=== PATIENT | female | born 1970 | race Caucasian/White ===

== ENCOUNTER 2025-01-01 13:39 | Inpatient (IN) | payer BC, SELFPAY ==
[2025-01-01 07:05] VITALS: BMI 28.0
[2025-01-01 07:08] VITALS: BP 175/104
[2025-01-01 08:33] LABS: Hematocrit 37.3 % (37.0-47.0); Hemoglobin 13.2 g/dL (12.0-16.0); Mean Corp Hgb Conc. 35.4 g/dL (33.0-37.0); Mean Corpuscular Volume 90.3 fL (81.0-99.0); Nucleated Red Blood Cells % 0 %; Platelet Count 249 10^3/uL (130-400); Red Cell Dist. Width 12.0 % (11.5-14.5)
--- NOTE | 2025-01-01 08:39 | ED.GENMED ---
History of Present Illness
General
Chief Complaint: Abdominal Symptoms
Source: patient
Time Seen by Provider: 01/01/25 08:12
History of Present Illness
History of Present Illness:
54-year-old female with past medical history of hypertension, hyperlipidemia, rheumatoid arthritis (immunosuppressed secondary to meds from her RA) presenting to the emergency department for evaluation of bloody stools, nausea and vomiting after she
took an enema and 2 stool softeners yesterday for constipation. She does note that the constipation is an off-and-on issue for her, has needed to take medications in the past but has never had any issues following these medications. Patient states
the stool softener she took was a [employer] brand Colace. She also notes recently starting Zepbound about 5 weeks ago and another medication for her RA about 2-1/2 months ago, unsure if maybe this is causing some of her symptoms. She notes no known GI
related issues although states she has not had a colonoscopy despite recommendations from her family doctor. Patient did states she went out to dinner last night with family but nobody else with similar symptoms. Denies any fevers. No recent
antibiotics. Family history otherwise noncontributory.
Past History
Past History
ED Past Medical History: HTN, Hypercholesterolemia and Other (Rheumatoid arthritis)
ED Past Surgical History: Orthopedic
Social History
Tobacco: Non-smoker
Alcohol: None
Drug: None
Personal:
Living: with family
Review of Systems
Review of Systems
All Other Systems: ROS reviewed and negative except as documented in HPI and ROS
Phy Exam
Physical Exam
Physical Exam:
GENERAL: Alert , in no apparent distress but does appear uncomfortable
EYE: clear conjunctiva b/l
HEAD: NCAT
ENT: o/p clr, dry mucous membranes
CARDIAC: Regular rate and rhythm .
LUNGS: Clear breath sounds bilaterally, no acute respiratory distress, no wheezes/rales/rhonchi
ABDOMEN: Soft, without focal tenderness, no r/g, no cvat
NEUROLOGICAL: Alert and oriented
SKIN: Warm and dry, skin intact.
MUSCULOSKELETAL: No edema, well perfused.
PSYCH: Normal and appropriate interaction.
Scores
Heart Failure Risk
Heart Failure Risk Score: Not Applicable
Heart Score for Chest Pain Patients
STEMI patient?: Not applicable
Withdrawal Assessment of Alcohol
Withdrawal Assessment Completed?: Not applicable
Course
Orders/Labs/Results
Orders:
Orders
01/01/25 08:24
Complete Blood Count/With Diff Urgent
Comprehensive Metabolic Panel Urgent
Lipase Urgent
Urinalysis Reflex To Culture Urgent
Date Specimen was Collected: 01/01/25
Time Specimen was Collected: 07:58
01/01/25 08:29
Ondansetron Injectable [Zofran] 4 mg .ROUTE .[facility]
01/01/25 08:33
CT Abd/pelvis W Iv Cont Urgent
Comment:
Reason For Exam: generalized lower abd pain
0.9% Sodium Chloride 1000 ml [Nss] 1,000 ml IV BOLUS
Morphine Sulfate 4 mg IV NOW STA
Ondansetron Injectable [Zofran] 4 mg IV NOW STA
01/01/25 10:20
Ondansetron Injectable [Zofran] 4 mg IV NOW STA
01/01/25 11:23
HYDROmorphone [Dilaudid] 0.5 mg IV NOW STA
Abnormal Lab Results
01/01/25
08:24
RBC 4.13 L 10^6/uL
(4.20-5.40)
MCH 32.0 H pg
(27.0-31.0)
Absolute Neuts (auto) 8.3 H 10^3/uL
(1.4-6.5)
Absolute Lymphs (auto) 0.5 L 10^3/uL
(1.2-3.4)
Absolute Monos (auto) 0.7 H 10^3/uL
(0.1-0.6)
Neutrophils % 87.6 H %
(42.2-75.2)
Lymphocytes % 4.9 L %
(20.5-51.1)
Chloride 108 H mmol/L
(98-107)
Glucose 114 H mg/dl
(70-99)
01/01/25 08:24
01/01/25 08:24
Vital Signs
Initial and Last Documented VS:
Initial Vital Signs
Temp Pulse Resp BP Pulse Ox
98.7 F 93 18 175/104 100
01/01/25 07:08 01/01/25 07:08 01/01/25 07:08 01/01/25 07:08 01/01/25 07:08
Last Documented Vital Signs
Temp Pulse Resp BP Pulse Ox
98.7 F 80 18 159/90 100
01/01/25 07:08 01/01/25 11:46 01/01/25 11:46 01/01/25 11:46 01/01/25 11:46
MDM/Problems Addressed
Differential Diagnosis Includes:
Colitis
Internal hemorrhoids
Stercoral colitis
Diverticulitis/diverticular bleed
Pancreatitis
Medication side effects
C. difficile colitis or other infectious diarrhea
Less concern for appendicitis or cholecystitis
Dehydration
Anemia
Electrolyte imbalance
MDM/Problems Addressed:
54-year-old female presenting to the ER for evaluation of nausea vomiting and bloody stools since using a enema and 2 stool softeners yesterday for constipation. Patient had just finished retching in the bathroom prior to my exam, has dry mucous
membranes. Will treat symptoms here with Zofran, morphine and 1 L normal saline. Will avoid NSAIDs secondary to the bleeding. Patient otherwise currently hemodynamically stable. Patient is immunosuppressed on her RA medications. CT scan
ordered. Disposition pending.
Chronic conditions affecting care: Immunosuppressed
*Pulse Oximetry
SaO2: 100
Oxygen Mode of Delivery: Room air
Patient hypoxic: no
*Critical Care Note
Total Time (30-74mins, 75-104mins- exclusive of procedures): Not Applicable
Comment
Comment:
Patient noted some relief of the pain following the morphine but still with nausea following first round so an additional [address] scan for disposition planning
After returning from CT scan patient did note some increased pain. Additional half milligram Dilaudid ordered. CT scan with moderate to severe colitis. Given the patient's immunosuppressed state and continued waxing waning pain we will treat with
Dilaudid and reassess following
Patient Management
Discussion with other providers: Hospitalist
Escalation/DeEscalation of care consider admission/obs:
Patient does note that her symptoms are improved since arrival however still not feeling well. Given her immunosuppressed state and CT scan findings we will plan for admission for continued pain control, antiemetics and supportive care.
Hospitalist team notified and accepts for continued evaluation and treatment.
ED Attending Note
-
Portions of this chart may have been created with voice recognition software.� Occasional wrong word or��sound alike� substitutions may have occurred due to the inherent limitations of voice recognition software.
Discharge Plan
Departure
Patient Disposition: Admit
Date of Disposition: 01/01/25
Time of Disposition: 12:35
Presentation/result/management discussed w/ accepting MD/DO: Hospitalist
Discharge Problem:
Colitis
Prescriptions:
No Action
Mary Jo
1 tab PO PRN PRN (Reason: allergies)
methylprednisolone 4 MG tablet
4 mg PO DAILY
hydrocodone-acetaminophen 1 EACH tablet
1 tab PO PRN PRN (Reason: pain)
leflunomide 20 MG tablet
20 mg PO DAILY
tramadol 50 MG tablet
50 mg PO BID
norethindrone-mestranol [Ortho-Novum] 1 EACH tablet
1 tab PO DAILY
hydroxychloroquine 200 MG tablet
400 mg PO DAILY
Referrals:
JUDI UMANZOR PA [Family Provider, Family Practice]
Interventions
Interventions:
*Risk Screen - Suicide Last Done: 01/01/25 07:08
*General Assessment Last Done: 01/01/25 07:08
*Neglect/Abuse Screening Last Done: 01/01/25 07:08
Discharge Date and Time
Print Language: YAKUT
[2025-01-01] MEDS: MORPHINE SULFATE 4 MG IV (08:41)
[2025-01-01] MEDS: NSS 1000 IV ×2 (08:43→16:50)
[2025-01-01] MEDS: ZOFRAN 4 MG IV ×3 (08:43→16:52)
[2025-01-01 09:00] LABS: ALT (SGPT) 30 U/L (0-35); AST (SGOT) 31 U/L (14-36); Albumin 4.9 g/dl (3.5-5.0); Alkaline Phosphatase 86 U/L (38-126); Blood Urea Nitrogen 11 mg/dl (7-17); Calcium 9.8 mg/dl (8.4-10.2); Carbon Dioxide 26 mmol/L (22-30); Chloride 108 mmol/L (98-107); Glucose 114 mg/dl (70-99); Lipase 95 U/L (23-300); Potassium 4.0 mmol/L (3.5-5.1); Sodium 138 mmol/L (135-145); Total Protein 7.2 g/dl (6.3-8.2); eGFR > 60.00
[2025-01-01 10:46] LABS: Urine Character Clear (Clear)
[2025-01-01] MEDS: DILAUDID 0.5 MG IV ×2 (11:30→14:58)
[2025-01-01 11:46] VITALS: BP 159/90
--- NOTE | 2025-01-01 12:36 | HPS.HSE ---
Addendum entered and electronically signed by Teresa Gustafson DO 01/01/25 14:36:
Patient seen and examined. I reviewed the patient with Samantha and agree with her history and physical and assessment and plan of care as per below. The patient is having a significant amount of abdominal discomfort and pain associated with some
bloody diarrhea. As noted below she was initially having constipation and then she took an enema and started having some loose stool with blood. This is associated with cramping abdominal pain. She denies any recent travel nor any recent sick
contacts. Her CAT scan of her abdomen and pelvis is showing significant mount of colitis. Stool studies have been collected. Of note she also had an episode of vomiting today.
She is afebrile and her vital signs are stable.
Physical exam is remarkable for a non-peritoneal abdomen, no guarding no rebound, positive bowel sounds, diffuse tenderness to palpation, cardiovascular is regular rate and rhythm no murmurs rubs or gallops, lungs are clear to auscultation
bilaterally no wheezes rales rhonchi
Labs are reviewed her white count is normal at 9.4 slight left shift with neutrophil percentage of 87.6 , UA is normal
CT scan reviewed
Assessment and plan of care
Acute severe left-sided colitis, in the setting of immunosuppression and low-grade temperature of 99.2
-Continue with supportive care, IV fluids, pain management, IV antiemetics, and will add IV Unasyn
-Stool studies are pending
Immunosuppressed secondary to rheumatoid arthritis
-We will continue her Medrol at 2 mg daily along with the hydroxychloroquine, and we will hold her baricitinib for now
Continue to the monitor the patient's electrolytes closely with repeat laboratory in the morning
I agree with all of their assessment and plan of care as per below.
Original Note:
Family Physician
-
Family Physician: PATRICE JIMENEZ
Chief Complaint
-
Bloody Stools
History of Present Illness
Patient is a 54 y/o female past medical history of hypertension hyperlipidemia, and rheumatoid arthritis who presents with bloody stools. Patient notes difficulty with constipation for an extended period of time which has gotten worse since she
started taking Zepbound about 5 weeks ago. Yesterday she developed left sided abdominal pain. She had not had a bowel movement in about a week so she used an enema. She states initially stools were just diarrhea but then the stools turned bloody.
Patient also reports associated nausea and vomiting. She denies fevers.
Medical History
Past Medical History
Past Medical History: Reports Other
Additional Past Medical History:
Essential Hypertension
Hyperlipidemia
Asthma
Rheumatoid Arthritis
Past Surgical History: Reports Other
Additional Past Surgical History:
L5-S1 Diskectomy
Bilateral Plantar Fascitis Surgery
Social History
Tobacco: Non-smoker
Alcohol: None
Drug: None
Personal:
Living: With Family
Family History
Family History: Not pertinent
Allergies / Home Medications
Allergies reflects when Allergies were last updated in [employer].
Home Medications with original date entered in [employer]
Allergy/Medication List:
Allergies
Allergy/AdvReac Type Severity Reaction Status Date / Time
acetaminophen (From Percocet) Allergy Unknown Verified 01/01/25 07:08
oxycodone HCl (From Percocet) Allergy ANXIETY,PALPITATIONS Verified 01/01/25 07:08
AND SOME
NAUSEA
Home Medications
Mary Jo 1 tab PO PRN PRN allergies 07/07/16
hydrocodone 10 mg-acetaminophen 325 mg tablet 1 tab PO PRN PRN pain 07/07/16
hydroxychloroquine 200 mg tablet 400 mg PO DAILY 07/07/16
leflunomide 20 mg tablet 20 mg PO DAILY 07/07/16
methylprednisolone 4 mg tablet 4 mg PO DAILY 07/07/16
norethindrone 1 mg-mestranol 50 mcg tablet (Ortho-Novum) 1 tab PO DAILY 07/07/16
tramadol 50 mg tablet 50 mg PO BID 07/07/16
Review of Systems
-
History Source: Patient
A 12 point ROS was completed and negative except as noted: Yes
Constitutional: Denies Fever or Chills
Respiratory: Denies Cough or Trouble Breathing
Cardiac: Denies Chest Pain or Palpitations
Abdomen/GI: Reports See HPI
Physical Exam
Vital Signs
Vital Signs
Temp Pulse Resp BP Pulse Ox
98.7 F 80 18 159/90 100
01/01/25 07:08 01/01/25 11:46 01/01/25 11:46 01/01/25 11:46 01/01/25 11:46
Physical Exam
General: Comfortable and Conversant
HEENT: Anicteric and Moist mucous membranes
Respiratory: Clear and Non Labored Respirations
Cardiac: S1/S2 and Regular Rhythm
GI: Soft and Tender (Tenderness to palpation on the left slightly worse in lower quadrant, no rebound or guarding)
Musculoskeletal: No Clubbing, No Cyanosis and No Edema
Skin: Warm and Dry
Neuro: Awake, Alert, Oriented and Nonfocal/grossly intact
Laboratory Results
-
01/01/25 08:24
01/01/25 08:24
Laboratory Results
Total Bilirubin 0.9 mg/dl (0.2-1.3) 01/01/25 08:24
AST 31 U/L (14-36) 01/01/25 08:24
ALT 30 U/L (0-35) 01/01/25 08:24
Alkaline Phosphatase 86 U/L (38-126) 01/01/25 08:24
Lipase 95 U/L (23-300) 01/01/25 08:24
Data Reviewed
-
CT Scan: Report Reviewed by me
Lab Data: Labs Reviewed by me
Impression/Plan
-
Severe Left Sided Colitis
-Allow clear liquids
-Continue supportive care with IVFs, anti-emetics and pain meds
-Attempt to obtain stool studies
-Following my initial evaluation patient developed temp of 99.1F - given her immunocompromised state will start empiric antibiotics with Unasyn
Essential Hypertension
-Continue losartan with hold parameters
Hyperlipidemia
-Continue atorvastatin
Mild Persistent Asthma
-Continue fluticasone
Rheumatoid Arthritis / Immunocompromised-State
-Continue hydroxychloroquine and methylprednisolone
-Hold Olumiant
DVT Proph: SCDs
Code Status: Full Code
[2025-01-01 14:00] VITALS: BP 161/87
--- NOTE | 2025-01-01 14:12 | CM ---
CM reviewed chart and met with pt bedside in ED. Lives with in 2 story home, 2 [address], first floor half BA, BR/full BA second floor. Independent in ADLs, personal care and ambulation at baseline
No hx VN/SNF.
PCP: Roseline Perea
Pharmacy: [facility]
Discharge plan, Anticipate home, watch for needs
[2025-01-01] MEDS: COZAAR 50 MG PO (14:57)
[2025-01-01 15:46] VITALS: BP 146/78
[2025-01-01 15:47] VITALS: BMI 27.3
--- NOTE | 2025-01-01 17:43 | PTCARENOTE ---
Patient admitted to 2N from ED into room 2122. Patient AAOx3, VSS, ambulatory in room independently. Patient c/o abd pain/cramping mainly focused on L side rated 5/10, states improvement after dose of IV dilaudid given in ED. PRN IV zofran
administered by this RN for patient c/o nausea. Enhanced precautions for outstanding stool sample, patient aware, states no BM since early this AM prior to admin. Patient oriented to room and call tanvir, ERIKA infusing, patient on clear liquid diet,
ringing appropriately.
[2025-01-01] MEDS: UNASYN IV ×2 (17:49→22:14)
[2025-01-01] MEDS: COMPAZINE 5 MG IV (20:21)
[2025-01-01] MEDS: DILAUDID 0.25 MG IV ×2 (20:23→23:39)
[2025-01-01] MEDS: LIPITOR 20 MG PO (22:14)
[2025-01-01 23:09] VITALS: BP 159/86
[2025-01-02] MEDS: UNASYN IV ×4 (03:11→22:29)
[2025-01-02] MEDS: NSS 1000 IV ×2 (05:44→15:36)
[2025-01-02 07:00] VITALS: BP 163/93
[2025-01-02 07:09] LABS: Hematocrit 35.3 % (37.0-47.0); Hemoglobin 12.2 g/dL (12.0-16.0); Mean Corp Hgb Conc. 34.6 g/dL (33.0-37.0); Mean Corpuscular Volume 91.0 fL (81.0-99.0); Platelet Count 210 10^3/uL (130-400); Red Cell Dist. Width 12.6 % (11.5-14.5)
[2025-01-02 07:47] LABS: Blood Urea Nitrogen 5 mg/dl (7-17); Calcium 8.4 mg/dl (8.4-10.2); Carbon Dioxide 22 mmol/L (22-30); Chloride 109 mmol/L (98-107); Estimated Creatinine Clearance 90 ml/min; Glucose 79 mg/dl (70-99); Potassium 3.8 mmol/L (3.5-5.1); Sodium 137 mmol/L (135-145); eGFR > 60.00
[2025-01-02] MEDS: FLOVENT 44 MCG INHALER 2 PUFF INH ×2 (08:05→20:42)
[2025-01-02] MEDS: PLAQUENIL 400 MG PO (08:28)
[2025-01-02] MEDS: COZAAR 25 MG PO (08:29)
[2025-01-02] MEDS: MEDROL 2 MG PO (08:29)
[2025-01-02] MEDS: THERAGRAN 1 TABLET PO (08:29)
[2025-01-02] MEDS: CLARITIN 10 MG PO (08:29)
[2025-01-02] MEDS: TYLENOL 650 MG PO (10:16)
--- NOTE | 2025-01-02 11:00 | PTCARENOTE ---
Patient ambulating in room with a steady gait. Patient tolerating clear liquid diet. Patient c/o mild cramping in her LLQ, Tylenol given at 1015 with good relief. Patient updated with plan of care. Family member at bedside. Call ramey in reach.
--- NOTE | 2025-01-02 13:20 | W.PN.HOSP.TC ---
Today's Communication/Plan
-
Assessment / Plan
Assessment / Plan
General: No Apparent Distress, Comfortable and Conversant
HEENT: NormoCephalic, Moist mucous membranes, Atraumatic
Respiratory: Clear and Non Labored Respirations
Cardiac: S1/S2 and Regular Rhythm; No Rub or Gallop
GI: Soft, mild left-sided TTP, Non Distended and Normal Bowel Sounds
Musculoskeletal: No Edema, no deformity
Skin: Warm and dry
: NO Hudson
Neuro: Awake, Alert, Nonfocal/grossly intact
Psych: Calm and Intact Judgment/Insight
Ms. Marroquin is a 54-year-old female with a medical history of RA (on hydroxychloroquine, methylprednisolone, and baricitinib), hypertension, asthma, and hyperlipidemia who presented with abdominal pain and bloody stools. Her abdominal discomfort
began after starting Zepbound about 5 weeks prior to arrival. She developed constipation which was relieved with an enema, but later developed diarrhea eventually containing blood. She has also had associated nausea and vomiting. She denies
fevers.
Colitis:
- Abdominal symptoms are improving with IV Unasyn
- C. difficile negative, other stool studies pending
- CT imaging shows severe colitis involving the distal transverse, descending, and proximal sigmoid colon
- Continue clear liquid diet for now
- IV fluids
- Hemoglobin stable
- Holding home aspirin, not sure why she was on this
Rheumatoid arthritis:
- Continue home hydroxychloroquine 40 mg daily and methylprednisolone 2 mg daily
Hypertension:
- Chronic
- Continue home losartan 25 mg daily
Asthma:
- Stable
- Continue home inhaled fluticasone 2 puffs daily in the routing
DVT prophylaxis: SCDs
CODE STATUS: Full code
Total time spent on today's encounter was 45 minutes
Anticipated Discharge: 24 - 48 hours
Subjective/Interval History
-
Date of Service: January 02, 2025
Patient was seen and examined at bedside this morning. Still has left-sided abdominal pain but says it is improving.
Objective Data
-
Labs:
Laboratory Results
01/02/25
06:31
WBC 10.2
Hgb 12.2
Hct 35.3 L
Plt Count 210
Sodium 137
Potassium 3.8
Chloride 109 H
Carbon Dioxide 22
BUN 5 L
Creatinine 0.7
Glucose 79
Calcium 8.4
Vital Signs:
Vital Signs
Temp Pulse Resp BP Pulse Ox
98.9 F 72 16 163/93 96
01/02/25 07:00 01/02/25 08:07 01/02/25 08:07 01/02/25 07:00 01/02/25 08:07
I&O
01/01/25 01/02/25 01/03/25
06:59 06:59 06:59
Intake Total 1720 / 1720
Balance 1720 / 1720
Review of Systems
-
History Source: Patient
All other systems: Reviewed and negative
Abdomen/GI: Reports Abdominal Pain
Physical Exam
-
General: No Apparent Distress
--- NOTE | 2025-01-02 14:41 | CM ---
CM following re: discharge planning.
Reviewed pt's chart, met with pt.
Per chart review, pt is on room air, lives with in 2 story home and pt is independent in all areas [employer]IED [employer].
D/C plan: home with anticipated no needs. to transport at discharge.
CM will follow with discharge plan updates as needed.
[2025-01-02 15:00] VITALS: BP 122/76
[2025-01-02] MEDS: DILAUDID 0.25 MG IV ×2 (17:35→22:27)
--- NOTE | 2025-01-02 17:46 | PTCARENOTE ---
Patient c/o 7/10 Lower left abdominal pain. Dilaudid given per patient request. Spouse at bedside. Patient continues to tolerate clear liquids.
[2025-01-02] MEDS: LIPITOR 20 MG PO (22:23)
[2025-01-02] MEDS: ZOFRAN 4 MG IV (22:29)
[2025-01-02 23:23] VITALS: BP 160/85
[2025-01-03] MEDS: NSS 1000 IV (02:18)
[2025-01-03] MEDS: UNASYN IV ×4 (04:09→21:28)
[2025-01-03 06:06] LABS: Hematocrit 32.7 % (37.0-47.0); Hemoglobin 11.3 g/dL (12.0-16.0); Mean Corp Hgb Conc. 34.6 g/dL (33.0-37.0); Mean Corpuscular Volume 90.8 fL (81.0-99.0); Nucleated Red Blood Cells % 0 %; Platelet Count 189 10^3/uL (130-400); Red Cell Dist. Width 12.7 % (11.5-14.5)
[2025-01-03 06:40] LABS: Blood Urea Nitrogen 4 mg/dl (7-17); Calcium 8.4 mg/dl (8.4-10.2); Carbon Dioxide 24 mmol/L (22-30); Chloride 113 mmol/L (98-107); Estimated Creatinine Clearance 106 ml/min; Glucose 94 mg/dl (70-99); Potassium 3.7 mmol/L (3.5-5.1); Sodium 140 mmol/L (135-145); eGFR > 60.00
[2025-01-03 07:00] VITALS: BP 161/81
[2025-01-03] MEDS: FLOVENT 44 MCG INHALER 2 PUFF INH ×2 (07:44→17:50)
[2025-01-03] MEDS: PLAQUENIL 400 MG PO (10:00)
[2025-01-03] MEDS: THERAGRAN 1 TABLET PO (10:00)
[2025-01-03] MEDS: CLARITIN 10 MG PO (10:00)
[2025-01-03] MEDS: COZAAR 25 MG PO (10:00)
[2025-01-03] MEDS: MEDROL 2 MG PO (10:00)
--- NOTE | 2025-01-03 13:51 | W.PN.HOSP.TC ---
Today's Communication/Plan
-
Assessment / Plan
Assessment / Plan
General: No Apparent Distress, Comfortable and Conversant
HEENT: NormoCephalic, Moist mucous membranes, Atraumatic
Respiratory: Clear and Non Labored Respirations
Cardiac: S1/S2 and Regular Rhythm; No Rub or Gallop
GI: Soft, mild left-sided TTP, Non Distended and Normal Bowel Sounds
Musculoskeletal: No Edema, no deformity
Skin: Warm and dry
: NO Hudson
Neuro: Awake, Alert, Nonfocal/grossly intact
Psych: Calm and Intact Judgment/Insight
Ms. Marroquin is a 54-year-old female with a medical history of RA (on hydroxychloroquine, methylprednisolone, and baricitinib), hypertension, asthma, and hyperlipidemia who presented with abdominal pain and bloody stools. Her abdominal discomfort
began after starting Zepbound about 5 weeks prior to arrival. She developed constipation which was relieved with an enema, but later developed diarrhea eventually containing blood. She has also had associated nausea and vomiting. She denies
fevers.
Colitis:
- Abdominal symptoms are improving with IV Unasyn, however she is still having bloody bowel movements with clots and significant cramping
- C. difficile negative, other stool studies pending
- CT imaging shows severe colitis involving the distal transverse, descending, and proximal sigmoid colon
- Will advance diet to low residue
- Hemoglobin slightly down today to 11.3
- Holding home aspirin, not sure why she was on this
- Will ask for GI evaluation, some concern that she may be developing ulcerative colitis considering her RA history
Rheumatoid arthritis:
- Continue home hydroxychloroquine 40 mg daily and methylprednisolone 2 mg daily
Hypertension:
- Chronic
- Continue home losartan 25 mg daily
Asthma:
- Stable
- Continue home inhaled fluticasone 2 puffs twice daily
DVT prophylaxis: SCDs
CODE STATUS: Full code
Total time spent on today's encounter was 45 minutes
Anticipated Discharge: 24 - 48 hours
Subjective/Interval History
-
Date of Service: January 03, 2025
Patient was seen and examined at bedside this morning. She had some abdominal cramping and bloody bowel movements overnight. Her hemoglobin dropped slightly, blood pressure remained stable. She is ready to trial advancing her diet.
Objective Data
-
Labs:
Laboratory Results
01/03/25
05:55
WBC 8.1
Hgb 11.3 L
Hct 32.7 L
Plt Count 189
Sodium 140
Potassium 3.7
Chloride 113 H
Carbon Dioxide 24
BUN 4 L
Creatinine 0.6
Glucose 94
Calcium 8.4
Vital Signs:
Vital Signs
Temp Pulse Resp BP Pulse Ox
98.2 F 73 16 161/81 96
01/03/25 07:00 01/03/25 07:47 01/03/25 07:47 01/03/25 07:00 01/03/25 07:47
I&O
01/02/25 01/03/25 01/04/25
06:59 06:59 06:59
Intake Total 1720 / 1720 4200 / 4200
Balance 1720 / 1720 4200 / 4200
Review of Systems
-
History Source: Patient
All other systems: Reviewed and negative
Abdomen/GI: Reports Abdominal Pain and Bloody Stools
Physical Exam
-
General: No Apparent Distress
--- NOTE | 2025-01-03 14:26 | CM ---
CM following re: discharge planning.
Reviewed pt's chart, met with pt.
Per chart review, pt is on room air, lives with in 2 story home and pt is independent in all areas [employer].
D/C plan: home with anticipated no needs. to transport at discharge.
CM will follow with discharge plan updates as needed.
--- NOTE | 2025-01-03 14:52 | PTCARENOTE ---
Patient took shower with help from her daughter. Patient tolerated 100% of low residue diet. Patient describes pain as a tenderness in the LLQ and denies need for pain medication at present. Patient continues with small amount of loose bloody stool
<30ml.
[2025-01-03 15:00] VITALS: BP 147/83
--- NOTE | 2025-01-03 15:00 | CON.GI ---
Addendum entered and electronically signed by Hugo Garcia MD 01/03/25 17:36:
I saw and evaluated the patient. I reviewed the resident�s note and agree with findings and plan as documented in the resident�s note.
54yo female presents with sudden onset abd pain, bloody diarrhea after eating at restaurant Thursday night. Prior, she was having worsened constipation since starting zepbound 5 weeks ago. She does have chronic constipation which has been
lifelong. No prior colonoscopy. After dinner Thursday she had abd pain and tried stool softener and enema followed by bloody diarrhea. She also had vomiting. Denies fever. CT in ER showed moderate wall thickening of distal transverse,
descending, proximal sigmoid colon and stranding. C diff negative so far. WBC normal. Denies FH CRC or IBD
REC:
Agree with IV abx and clears
If doing better, advance diet
Await stool culture r/o infectious colitis, which is most likely
After resolution, I recommended colonoscopy in about 2-3 months to confirm resolution, exclude IBD and also for CRC screening.
Original Note:
Consultation
-
Date/Time Consultation Requested: 01/03/2025
Date/Time Consultation Performed: 01/03/2025
Medical History
Chief Complaint / HPI
Chief Complaint: Blood in stools
History of Present Illness:
Patient is a 54-year-old female with past medical history of essential hypertension, hyperlipidemia, asthma, rheumatoid arthritis, lupus who is on hydroxychloroquine, leflunomide, methylprednisone, a couple of months ago her medications were being
adjusted and she noticed that she developed generalized swelling of her body. She went to her PCP who noticed a high blood pressure and high blood sugars, she was in prediabetic range and her PCP decided to start her on Zepbound. She is on 2.5 mg
dose and takes the dose every Thursday. She denies any nausea, vomiting, constipation or diarrhea with Zepbound and she was feeling great with it, her blood sugars were improving and her weight was improvement.
Over the last week, she was unable to have a bowel movement. On Thursday, she went out to eat and when she came back home she had intense pain in her lower abdomen, she took a couple of stool softeners but it did not help her so she decided to give
herself an enema. Following the enema, she had multiple loose stools and then she noticed blood in her stool. During the night she had multiple bowel movements with mucus and with each of them she had noticed about a cup of blood that was bright
red in color. She came to the ER on Thursday morning. At that time she was having low-grade fevers, an abdominal CT was done that showed segmental wall thickening of the distal transverse colon descending colon and proximal sigmoid colon with
pericolonic stranding suggesting colitis without any perforation or abscess. She was started on IV fluids and antibiotic. She still has blood in her stool that is darker in color and jellylike in consistency. She never had any screening
colonoscopy done. She denies any family history of stomach cancer, colon cancer, ulcerative colitis or Crohn's disease.
Past Medical History
Past Medical History: Asthma, HTN, Hypercholesterolemia and Other (Rheumatoid arthritis)
Past Surgical History: Other (L5-S1 Diskectomy Bilateral Plantar Fascitis Surgery)
Social History
Tobacco: Non-Smoker
Alcohol: None
Drug: None
Personal:
Living: With Family (Describes herself as an active person, daily gym, takes care of her grandchildren 7-month and 10 months of age)
Family History
Family History: Reviewed & Not Pertinent
Allergies / Home Medications
Allergy/AdvReac Type Severity Reaction Status Date / Time
acetaminophen (From Percocet) Allergy Unknown Verified 01/01/25 07:08
oxycodone HCl (From Percocet) Allergy ANXIETY,PALPITATIONS Verified 01/01/25 07:08
AND SOME
NAUSEA
�Medication �Instructions �Recorded
hydroxychloroquine 200 mg tablet 400 mg PO DAILY Autoimmune Disorder 07/07/16
methylprednisolone 4 mg tablet 2 mg PO DAILY Anti-Inflammatory 07/07/16
aspirin 81 mg tablet 81 mg PO Q48H Blood Clot 01/01/25
Prevention/Tx
atorvastatin 20 mg tablet 20 mg PO QHS High Cholesterol 01/01/25
baricitinib 2 mg tablet (Olumiant) 4 mg PO DAILY Autoimmune Disorder 01/01/25
fexofenadine 180 mg tablet 180 mg PO DAILY Allergies 01/01/25
fluticasone furoate 100 1 inh inhalation R DAILY 01/01/25
mcg/actuation blister powder for Lung/Breathing Issues
inhalation (Arnuity Ellipta)
losartan 25 mg tablet 25 mg PO DAILY Blood Pressure 01/01/25
therapeutic multivitamin 1 tab PO DAILY Supplement 01/01/25
tirzepatide (weight loss) 2.5 2.5 mg SC MO WEIGHT LOSS 01/01/25
mg/0.5 mL subcutaneous pen
injector (Zepbound)
Review of Systems
-
All other systems: A 12 pt ROS was Negative except as stated above in HPI
Vital Signs
Temp Pulse Resp BP Pulse Ox
98.2 F 73 16 161/81 96
01/03/25 07:00 01/03/25 07:47 01/03/25 07:47 01/03/25 07:00 01/03/25 07:47
Physical Exam
Exam
General: No Apparent Distress and Comfortable
HEENT: Anicteric and Moist Mucous Membranes
Respiratory: Clear; Negative Wheezes, Rales or Rhonchi
Cardiac: S1/S2 and Regular Rhythm
GI: Soft, Non Distended, Normal Bowel Sounds and Tender (Tender in the left lower quadrant)
Musculoskeletal: No Clubbing, No Cyanosis and No Edema
Neuro: Awake, Oriented and Nonfocal/Grossly Intact
Psych: Calm
Results
WBC 8.1 10^3/uL (4.8-10.8) 01/03/25 05:55
Hgb 11.3 g/dL (12.0-16.0) L 01/03/25 05:55
Hct 32.7 % (37.0-47.0) L 01/03/25 05:55
MCV 90.8 fL (81.0-99.0) 01/03/25 05:55
Plt Count 189 10^3/uL (130-400) 01/03/25 05:55
Absolute Neuts (auto) 6.5 10^3/uL (1.4-6.5) 01/03/25 05:55
Sodium 140 mmol/L (135-145) 01/03/25 05:55
Potassium 3.7 mmol/L (3.5-5.1) 01/03/25 05:55
Chloride 113 mmol/L (98-107) H 01/03/25 05:55
Carbon Dioxide 24 mmol/L (22-30) 01/03/25 05:55
BUN 4 mg/dl (7-17) L 01/03/25 05:55
Creatinine 0.6 mg/dL (0.6-1.0) 01/03/25 05:55
Calcium 8.4 mg/dl (8.4-10.2) 01/03/25 05:55
Total Bilirubin 0.9 mg/dl (0.2-1.3) 01/01/25 08:24
AST 31 U/L (14-36) 01/01/25 08:24
ALT 30 U/L (0-35) 01/01/25 08:24
Alkaline Phosphatase 86 U/L (38-126) 01/01/25 08:24
Lipase 95 U/L (23-300) 01/01/25 08:24
Diagnostic Image Results:
CT A/P 01/01/2025
Abdomen and pelvis: The liver, spleen, gallbladder and pancreas are unremarkable. The adrenal glands and kidneys are unremarkable. The abdominal aorta is normal caliber. No significant lymphadenopathy is noted. Bowel loops are normal caliber. The
terminal ileum and appendix are within normal limits. There is moderate segmental wall thickening of the distal transverse colon, descending colon and proximal sigmoid colon as well as pericolonic stranding suggesting colitis. There is no evidence
of perforation or abscess formation
Prior GI Procedures:
EGD:
None
Colonoscopy:
None
Assessment / Plan
-
Impression
Love is a 54-year-old female with past medical history of rheumatoid arthritis/lupus, on immunosuppressants admitted for workup of colitis. GI consulted for recommendations
Assessment/plan
Stercoral colitis secondary to chronic constipation
Acute diverticulitis given the pattern of sudden onset massive bleed and then progressively decrease in the amount of blood and change in color of blood
Infectious colitis
Side effect of Zepbound but less likely
C. difficile and norovirus negative
Plan
Follow stool culture results
Continue IV fluids and IV antibiotics
Supportive management with as needed pain medications
Advance diet as tolerated
If the bleeding self resolves over the next couple of days, most likely diverticular bleed, will follow-up on outpatient basis with a colonoscopy
Add bowel regimen and discharge on a good bowel regimen
Close follow-up with PCP regarding Zepbound
DVT prophylaxis SCDs
CODE STATUS-full code
-
-
Thank you for consultation and allowing me to participate in the patient's care. 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
[2025-01-03] MEDS: TYLENOL 650 MG PO (19:53)
[2025-01-03] MEDS: LIPITOR 20 MG PO (21:28)
[2025-01-03 23:04] VITALS: BP 136/80
[2025-01-04] MEDS: MYLICON 80 MG PO ×3 (00:03→21:34)
[2025-01-04] MEDS: UNASYN IV ×4 (04:58→21:27)
[2025-01-04 07:00] VITALS: BP 158/91
[2025-01-04] MEDS: FLOVENT 44 MCG INHALER 2 PUFF INH ×2 (07:07→18:11)
[2025-01-04] MEDS: COZAAR 25 MG PO (07:59)
[2025-01-04] MEDS: MEDROL 2 MG PO (07:59)
[2025-01-04] MEDS: THERAGRAN 1 TABLET PO (07:59)
[2025-01-04] MEDS: PLAQUENIL 400 MG PO (08:00)
[2025-01-04] MEDS: CLARITIN 10 MG PO (08:00)
[2025-01-04 08:27] LABS: Hematocrit 34.1 % (37.0-47.0); Hemoglobin 11.7 g/dL (12.0-16.0); Mean Corp Hgb Conc. 34.3 g/dL (33.0-37.0); Mean Corpuscular Volume 91.2 fL (81.0-99.0); Nucleated Red Blood Cells % 0 %; Platelet Count 227 10^3/uL (130-400); Red Cell Dist. Width 12.4 % (11.5-14.5)
[2025-01-04 08:30] LABS: Blood Urea Nitrogen 4 mg/dl (7-17); Calcium 9.1 mg/dl (8.4-10.2); Carbon Dioxide 25 mmol/L (22-30); Chloride 113 mmol/L (98-107); Estimated Creatinine Clearance 106 ml/min; Glucose 97 mg/dl (70-99); Potassium 3.7 mmol/L (3.5-5.1); Sodium 140 mmol/L (135-145); eGFR > 60.00
--- NOTE | 2025-01-04 09:03 | W.PN.GI.CBS2 ---
Addendum entered and electronically signed by Hugo Garcia MD 01/04/25 09:55:
I saw and evaluated the patient. I reviewed the resident�s note and agree with findings and plan as documented in the resident�s note.
Pt just passed gelatinous dark bloody clots. Not much stool. Had cramps overnight relieved with simethicone
ABD soft mild tender
REC:
Suspect resolving infectious colitis
OK to advance to low residue diet
Await Ecoli, Salmonella, Shigella. C diff and Campylobacter negative. WBCs in stool
Cont abx for now
If bleeding stops, tolerating diet, OK for d/c, but monitor today and see.
Original Note:
Today's Communication / Plan
-
Advance diet as tolerated
Assessment / Plan
-
Impression
Love is a 54-year-old female with past medical history of rheumatoid arthritis/lupus, on immunosuppressants admitted for infectious colitis
Assessment/plan
Infectious colitis
Stercoral colitis secondary to chronic constipation
Acute diverticulitis given the pattern of sudden onset massive bleed and then progressively decrease in the amount of blood and change in color of blood
Side effect of Zepbound but less likely
C. difficile and norovirus negative
Campylobacter jejuni negative
Moderate amount of leukocytes and stool
Plan
Follow stool culture results
Continue IV fluids and IV antibiotics
Supportive management with as needed pain medications
Advance diet as tolerated
Patient feeling fine and no further blood in stool, can discharge on oral antibiotics
Follow-up with GI in office for colonoscopy in 2 to 3 months
DVT prophylaxis SCDs
CODE STATUS-full code
Subjective
Subjective
Date of Service: January 04, 2025
Patient seen and examined at bedside
Last bowel movement yesterday, burgundy in color
Has left lower quadrant pain relieved with Pepcid
Denies any fever, chills, palpitations or any other issues at this time
Objective
Data Reviewed
Laboratory Data:
Laboratory Results
01/04/25 07:28
01/04/25 07:28
Laboratory Results
Total Bilirubin 0.9 mg/dl (0.2-1.3) 01/01/25 08:24
AST 31 U/L (14-36) 01/01/25 08:24
ALT 30 U/L (0-35) 01/01/25 08:24
Alkaline Phosphatase 86 U/L (38-126) 01/01/25 08:24
Lipase 95 U/L (23-300) 01/01/25 08:24
Vital Signs and I&O:
Vital Signs
Temp Pulse Resp BP Pulse Ox
98.1 F 84 16 158/91 97
01/04/25 07:00 01/04/25 07:59 01/04/25 07:10 01/04/25 07:59 01/04/25 07:10
I&O
01/03/25 01/04/25 01/05/25
06:59 06:59 06:59
Intake Total 4200 / 4200 2185 / 2185
Balance 4200 / 4200 2185 / 2185
Physical Exam
Physical Exam
HEENT: Moist mucous membranes
Cardiology: Normal Sinus Rhythm, S1 and S2
GI: Soft, Non Distended, Tender (Mildly tender in left lower quadrant) and Normal Bowel Sounds
[2025-01-04 09:49] LABS: C-Reactive Protein 119.70 mg/L (0.0-10.00)
--- NOTE | 2025-01-04 11:19 | CM ---
CM following re: discharge planning.
Reviewed pt's chart, met with pt.
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
D/C plan: home with anticipated no needs. to transport at discharge.
CM will follow with discharge plan updates as needed.
--- NOTE | 2025-01-04 13:24 | W.PN.HOSP.TC ---
Today's Communication/Plan
-
Assessment / Plan
Assessment / Plan
General: No Apparent Distress, Comfortable and Conversant
HEENT: NormoCephalic, Moist mucous membranes, Atraumatic
Respiratory: Clear and Non Labored Respirations
Cardiac: S1/S2 and Regular Rhythm; No Rub or Gallop
GI: Soft, mild left-sided TTP, Non Distended and Normal Bowel Sounds
Musculoskeletal: No Edema, no deformity
Skin: Warm and dry
: NO Hudson
Neuro: Awake, Alert, Nonfocal/grossly intact
Psych: Calm and Intact Judgment/Insight
Ms. Marroquin is a 54-year-old female with a medical history of RA (on hydroxychloroquine, methylprednisolone, and baricitinib), hypertension, asthma, and hyperlipidemia who presented with abdominal pain and bloody stools. Her abdominal discomfort
began after starting Zepbound about 5 weeks prior to arrival. She developed constipation which was relieved with an enema, but later developed diarrhea eventually containing blood. She has also had associated nausea and vomiting. She denies
fevers.
Colitis:
- Abdominal symptoms are improving with IV Unasyn, however she is still having bloody bowel movements with clots and significant cramping
- C. difficile and Campylobacter negative, Salmonella and Shigella pending
- CT imaging shows severe colitis involving the distal transverse, descending, and proximal sigmoid colon
- Hemoglobin stable at 11.7 on labs this morning
- Holding home aspirin, not sure why she was on this
- Appreciate GI evaluation, will need outpatient follow-up and eventual colonoscopy
- Continue low residue diet, simethicone for gas/bloating pains
- Will monitor another 24 hours considering ongoing hematochezia
Rheumatoid arthritis:
- Continue home hydroxychloroquine 40 mg daily and methylprednisolone 2 mg daily
- Elevated ESR and CRP although this is nonspecific considering active infection
Hypertension:
- Chronic
- Continue home losartan 25 mg daily
Asthma:
- Stable
- Continue home inhaled fluticasone 2 puffs twice daily
DVT prophylaxis: SCDs
CODE STATUS: Full code
Total time spent on today's encounter was 45 minutes
Anticipated Discharge: 24 - 48 hours
Subjective/Interval History
-
Date of Service: January 04, 2025
Patient was seen and examined at bedside this morning. She reported a large bloody bowel movement this morning. Hemodynamically stable. Abdominal pain improved and hemoglobin remained stable around 12.
Objective Data
-
Labs:
Laboratory Results
01/04/25
07:28
WBC 7.7
Hgb 11.7 L
Hct 34.1 L
Plt Count 227 D
Sodium 140
Potassium 3.7
Chloride 113 H
Carbon Dioxide 25
BUN 4 L
Creatinine 0.6
Glucose 97
Calcium 9.1
Vital Signs:
Vital Signs
Temp Pulse Resp BP Pulse Ox
98.1 F 84 16 158/91 97
01/04/25 07:00 01/04/25 07:59 01/04/25 07:10 01/04/25 07:59 01/04/25 09:24
I&O
01/03/25 01/04/25 01/05/25
06:59 06:59 06:59
Intake Total 4200 / 4200 2185 / 2185
Balance 4200 / 4200 2184 / 2185
Review of Systems
-
History Source: Patient
All other systems: Reviewed and negative
Abdomen/GI: Reports Abdominal Pain and Bloody Stools
Physical Exam
-
General: No Apparent Distress
[2025-01-04 15:00] VITALS: BP 153/85
[2025-01-04] MEDS: TYLENOL 650 MG PO (16:22)
[2025-01-04] MEDS: LIPITOR 20 MG PO (21:29)
[2025-01-04 23:10] VITALS: BP 157/75
[2025-01-05] MEDS: UNASYN IV ×2 (04:46→09:57)
[2025-01-05] MEDS: MYLICON 80 MG PO ×2 (05:58→09:04)
[2025-01-05 07:00] VITALS: BP 146/75
[2025-01-05 07:43] LABS: Hematocrit 33.9 % (37.0-47.0); Hemoglobin 11.7 g/dL (12.0-16.0); Mean Corp Hgb Conc. 34.5 g/dL (33.0-37.0); Mean Corpuscular Volume 90.4 fL (81.0-99.0); Nucleated Red Blood Cells % 0 %; Platelet Count 240 10^3/uL (130-400); Red Cell Dist. Width 12.3 % (11.5-14.5)
[2025-01-05 08:00] LABS: Blood Urea Nitrogen 7 mg/dl (7-17); Calcium 9.2 mg/dl (8.4-10.2); Carbon Dioxide 24 mmol/L (22-30); Chloride 113 mmol/L (98-107); Estimated Creatinine Clearance 90 ml/min; Glucose 83 mg/dl (70-99); Potassium 3.7 mmol/L (3.5-5.1); Sodium 142 mmol/L (135-145); eGFR > 60.00
[2025-01-05] MEDS: PLAQUENIL 400 MG PO (08:43)
[2025-01-05] MEDS: MEDROL 2 MG PO (08:43)
[2025-01-05] MEDS: CLARITIN 10 MG PO (08:43)
[2025-01-05] MEDS: THERAGRAN 1 TABLET PO (08:43)
[2025-01-05] MEDS: COZAAR 25 MG PO (08:44)
[2025-01-05] MEDS: FLOVENT 44 MCG INHALER 2 PUFF INH (08:50)
--- NOTE | 2025-01-05 09:26 | W.PN.GI.CBS2 ---
Today's Communication / Plan
-
Tolerating diet with improving symptoms
OK for d/c on outpt abx to complete 1 week course
F/U in the office with me to set up OP colonoscopy in 2-3 months
OK to use simethicone for gas sx
Will sign off
Assessment / Plan
-
Impression
Love is a 54-year-old female with past medical history of rheumatoid arthritis/lupus, on immunosuppressants admitted for infectious colitis
Assessment/plan
Infectious colitis- resolving. Negative C diff, Campylobacter, Salmonella, Shigella. E coli pending
Moderate amount of leukocytes and stool
Subjective
Subjective
Date of Service: January 05, 2025
Feeling better. Brown BM with scant blood today. Gas sx relieved with simethicone
Objective
Data Reviewed
Laboratory Data:
Laboratory Results
01/05/25 06:53
01/05/25 06:53
Laboratory Results
Total Bilirubin 0.9 mg/dl (0.2-1.3) 01/01/25 08:24
AST 31 U/L (14-36) 01/01/25 08:24
ALT 30 U/L (0-35) 01/01/25 08:24
Alkaline Phosphatase 86 U/L (38-126) 01/01/25 08:24
Lipase 95 U/L (23-300) 01/01/25 08:24
Vital Signs and I&O:
Vital Signs
Temp Pulse Resp BP Pulse Ox
98.2 F 69 20 146/75 95
01/05/25 07:00 01/05/25 08:44 01/05/25 07:00 01/05/25 08:44 01/05/25 07:00
I&O
01/04/25 01/05/25 01/06/25
06:59 06:59 06:59
Intake Total 2185 / 2185 540 / 540
Balance 2184
Physical Exam
Physical Exam
GI: Soft, Non Distended and Non Tender
--- NOTE | 2025-01-05 12:11 | W.DCSUMMARY ---
Discharge Summary
Discharge Data
Date of Admission: 01/01/25
Date of Discharge: 01/05/25
Total time spent discharging patient (in min): 40
-
Pending Results: No
Hospital Course
Ms. Marroquin is a 54-year-old female with a medical history of RA (on hydroxychloroquine, methylprednisolone, and baricitinib), hypertension, asthma, and hyperlipidemia who presented with abdominal pain and bloody stools. Her abdominal discomfort
began after starting Zepbound about 5 weeks prior to arrival. She developed constipation which was relieved with an enema, but later developed diarrhea eventually containing blood. She has also had associated nausea and vomiting. She denies
fevers. CT imaging showed severe colitis involving the distal transverse, descending, and proximal sigmoid colon. She was admitted for further evaluation and management of colitis.
Her abdominal pain improved with IV Unasyn and simethicone. She did continue to have bloody bowel movements for another 24 hours after admission, which began to improve thereafter. Her hemoglobin dropped to 11.7 where it then remained stable. Her
blood pressure also remained stable on her home losartan 25 mg daily. C. difficile, Salmonella, Shiga, and Campylobacter labs were negative. She was evaluated by GI who recommended outpatient follow-up and eventual colonoscopy. She was continued
on her home hydroxychloroquine and methylprednisolone which she takes for rheumatoid arthritis. She did have an elevated ESR and CRP, although these are nonspecific considering active infection and history of rheumatoid arthritis. She was able to
tolerate a low residue diet with continued improvement in her abdominal pain. She was medically stable for discharge home. She will be given a prescription for 5 days of Augmentin to complete a total 10-day course of antibiotics. She will need
close follow-up with her primary care physician for ongoing management. She should hold further doses of Zepbound until she has completed her antibiotic course and she is able to discuss further treatment with her primary care physician.
General: No Apparent Distress, Comfortable and Conversant
HEENT: NormoCephalic, Moist mucous membranes, Atraumatic
Respiratory: Clear and Non Labored Respirations
Cardiac: S1/S2 and Regular Rhythm; No Rub or Gallop
GI: Soft, minimal left-sided TTP, Non Distended and Normal Bowel Sounds
Musculoskeletal: No Edema, no deformity
Skin: Warm and dry
: NO Hudson
Neuro: Awake, Alert, Nonfocal/grossly intact
Psych: Calm and Intact Judgment/Insight
Discharge Plan
-
Patient Disposition: Home (Routine Discharge)
Discharge Diagnosis/Procedures: Colitis
Diet: Low Residue
Activity Restrictions/Additional Instructions:
Ms. Marroquin is a 54-year-old female with a medical history of RA (on hydroxychloroquine, methylprednisolone, and baricitinib), hypertension, asthma, and hyperlipidemia who presented with abdominal pain and bloody stools. Her abdominal discomfort
began after starting Zepbound about 5 weeks prior to arrival. She developed constipation which was relieved with an enema, but later developed diarrhea eventually containing blood. She has also had associated nausea and vomiting. She denies
fevers. CT imaging showed severe colitis involving the distal transverse, descending, and proximal sigmoid colon. She was admitted for further evaluation and management of colitis.
Her abdominal pain improved with IV Unasyn and simethicone. She did continue to have bloody bowel movements for another 24 hours after admission, which began to improve thereafter. Her hemoglobin dropped to 11.7 where it then remained stable. Her
blood pressure also remained stable on her home losartan 25 mg daily. C. difficile, Salmonella, Shiga, and Campylobacter labs were negative. She was evaluated by GI who recommended outpatient follow-up and eventual colonoscopy. She was continued
on her home hydroxychloroquine and methylprednisolone which she takes for rheumatoid arthritis. She did have an elevated ESR and CRP, although these are nonspecific considering active infection and history of rheumatoid arthritis. She was able to
tolerate a low residue diet with continued improvement in her abdominal pain. She was medically stable for discharge home. She will be given a prescription for 5 days of Augmentin to complete a total 10-day course of antibiotics. She will need
close follow-up with her primary care physician for ongoing management. She should hold further doses of Zepbound until she has completed her antibiotic course and she is able to discuss further treatment with her primary care physician.
Referrals:
JUDI UMANZOR PA [Family Provider, Family Practice]
Hugo Garcia MD [Active, Gastroenterology]
Prescriptions:
New
amoxicillin-pot clavulanate 875-125 mg tablet
1 tab PO BID 5 Days Qty: 10 0RF
Continued
methylprednisolone 4 MG tablet
2 mg PO DAILY
hydroxychloroquine 200 MG tablet
400 mg PO DAILY
atorvastatin 20 mg tablet
20 mg PO QHS
fexofenadine 180 mg Tablet
180 mg PO DAILY
losartan 25 mg tablet
25 mg PO DAILY
Arnuity Ellipta 100 mcg/actuation blister with device
1 inh INHALATION R DAILY
Olumiant 2 mg Tablet
4 mg PO DAILY
Patient Comments:
gets samples from doctor
therapeutic multivitamin Tablet
1 tab PO DAILY
Held
Zepbound 2.5 mg/0.5 mL pen injector
2.5 mg SC MO
Hold Instructions: Hold until antibiotic course is completed and you are able to discuss further treatment with PCP
Discontinued
aspirin 81 mg Tablet
81 mg PO Q48H
Discharge Orders:
Discharge Patient (As Directed); Ordered 01/05/25
Ordered By: Chucho De Paz
Discharge Date and Time
Print Language: SAMMARINESE
--- NOTE | 2025-01-05 12:14 | CM ---
CM following re: discharge planning.
Reviewed pt's chart, met with pt.
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
Discharge order noted. Pt is aware and she stated her will transport home.
No after care VN services identified.
D/C plan: home with no needs. to transport.
[2025-01-05 13:10] VITALS: BP 158/85
== END 2025-01-05 14:10 | disposition home or self-care (01) | DRG 392 ==
LOC: 2 NORTH 13:39
PROVIDERS: Emergency Medicine; Physician Assistant Medical; ADMITTING PHYSICIAN Internal Medicine; ATTENDING PHYSICIAN Internal Medicine; CONSULT PHYSICIAN Specialist; EMERGENCY PHYSICIAN Emergency Medicine; FAMILY PHYSICIAN Physician Assistant
DX: A09 Infectious gastroenteritis and colitis, unspecified (principal); D84.821 Immunodeficiency due to drugs; I10 Essential (primary) hypertension; E78.00 Pure hypercholesterolemia, unspecified; M06.9 Rheumatoid arthritis, unspecified; K59.09 Other constipation; R73.03 Prediabetes; R79.82 Elevated C-reactive protein (CRP); R70.0 Elevated erythrocyte sedimentation rate; M32.9 Systemic lupus erythematosus, unspecified; J45.30 Mild persistent asthma, uncomplicated; Z88.6 Allergy status to analgesic agent; Z88.5 Allergy status to narcotic agent; Z79.85 Long-term (current) use of injectable non-insulin antidiabetic drugs; Z79.52 Long term (current) use of systemic steroids; Z79.51 Long term (current) use of inhaled steroids
CPT/HCPCS: 74177; 80048; 80053; 81003; 83690; 85025; 85027; 85652; 86140; 87045; 87046; 87077; 87324; 87427; 87449; 89055; 94640; 96361; 96374; 96375; 96376; 99285; Q9967

== ENCOUNTER → 2025-04-26 15:37 | Outpatient (REF) | payer BC, SELFPAY | LOC: RAD 15:37 | PROVIDERS: ATTENDING PHYSICIAN Family Medicine Adult Medicine; FAMILY PHYSICIAN Physician Assistant | DX: M51.34 Other intervertebral disc degeneration, thoracic region (principal); M06.9 Rheumatoid arthritis, unspecified | CPT/HCPCS: 72070 ==

== ENCOUNTER 2025-05-24 06:28 | Day surgery (SDC) | payer BC, SELFPAY | END 2025-05-24 15:41 | disposition home or self-care (01) | LOC: GI 06:28 | PROVIDERS: ATTENDING PHYSICIAN Specialist | DX: Z12.11 Encounter for screening for malignant neoplasm of colon (principal); K52.9 Noninfective gastroenteritis and colitis, unspecified; D12.5 Benign neoplasm of sigmoid colon; D12.4 Benign neoplasm of descending colon; D12.3 Benign neoplasm of transverse colon; D12.0 Benign neoplasm of cecum; K63.5 Polyp of colon | CPT/HCPCS: 45385; 45380; 88305 ==